=== PATIENT | female | born 1960 ===

== ENCOUNTER 2018-01-02 08:31 | Outpatient (CLI) | payer OTHER ==
--- NOTE | 2018-01-03 16:58 | MMO ---
SCREENING MAMMOGRAPHY 01/02/18 COMPARISON: 11/19/15 HISTORY: Screening. FINDINGS: The patient's mammogram is interpreted with the assistance of computer aided detection. Benign calcification is seen bilaterally. There is no dominant mass, architectural distortion. No co ncerning microcalcification. IMPRESSION: BI-RADS 2: Benign Finding(s) Routine annual screening mammography (for women over age 40). POS: [facility]
== END 2018-01-02 08:32 | disposition home or self-care (01) ==
LOC: SCSMAMMO 08:31
PROVIDERS: ATTEND Family Medicine
DX: Z12.31 Encounter for screening mammogram for malignant neoplasm of breast (principal)
CPT/HCPCS: 77067